=== PATIENT | female | born 1940 | race Caucasian/White ===

== ENCOUNTER → 2016-08-15 | Outpatient (CLI) | payer BC, OTHER ==
[~2016-08-15] MED LIST: ASCA500 PO; CALCTAB5 PO; DICL1GEL28 TOP; DOCU-94 PO; HYDUNK; IBUP-1428 PO; MECL1TAB40 PO; METO25TA56 PO; MULT-506 PO; OMEG10007 PO; PRLSR20 PO; RED1CAP5 PO; TRIA37.5 PO; ULT50X PO; compound cream TOP
== END | disposition home or self-care (01) ==
LOC: C.CTS 10:23
PROVIDERS: ATTEND Orthopaedic Surgery
DX: Z01.818 Encounter for other preprocedural examination (principal); M19.011 Primary osteoarthritis, right shoulder

== ENCOUNTER → 2016-08-19 | Outpatient (CLI) | payer BC ==
[~2016-08-19] MED LIST changes: -DICL1GEL28 TOP; -HYDUNK; -compound cream TOP
--- NOTE | 2016-08-19 15:37 | MAMMOGRAPHY REPORT ---
BILATERAL DIGITAL SCREENING MAMMOGRAM WITH CAD: 08/19/2016 CLINICAL HISTORY: Routine screening. Patient has no complaints. TECHNIQUE: Bilateral CC and MLO views were obtained. Current study was also evaluated with a Comput er Aided Detection (CAD) system. COMPARISON: Comparison is made to exams dated: 08/17/2015 mammogram, 03/30/2013 mammogram, 07/05/2014 mammogram, 02/07/2012 mammogram, 01/31/2011 mammogram, and 01/30/2010 mammogram - [facility]. BREAST COMPOSITION: There are scattered areas of fibroglandular density in both breasts. FINDINGS: There is a stable loose grouping of round and punctate microcalcifications in the lower in ner middle one third of the left breast, that appears similar on all available prior mammograms dati ng back to at least , therefore likely benign. There are mild vascular calcifications in the breasts. No new suspicious mass, architectural distortion or cluster of microcalcifications is seen . IMPRESSION: ACR BI-RADS CATEGORY 1: NEGATIVE There is no mammographic evidence of malignancy. A 1 year screening mammogram is recommended. The p atient will receive written notification of the results. Approximately 10% of breast cancers are not detected with mammography. A negative mammographic repor t should not delay biopsy if a clinically suggestive mass is present. Tavia Iverson M.D. ay/:08/19/2016 14:21:37 Dry Cleaning Counter Clerk: Shayy RENNER)(M), [facility] letter sent: Normal 1/2 BI-RADS Code: ACR BI-RADS Category 1: Negative
== END | disposition home or self-care (01) ==
LOC: C.MAMM 11:05
PROVIDERS: ATTEND Family Medicine
DX: Z12.31 Encounter for screening mammogram for malignant neoplasm of breast (principal)

== ENCOUNTER → 2016-09-19 | Outpatient (CLI) | payer BC ==
--- NOTE | 2016-09-19 14:49 | DIAGNOSTIC IMAGING REPORT ---
RIGHT ANKLE MIN 3 VIEWS ROUTINE CLINICAL HISTORY: M25.571 Right pain COMPARISON: None. DISCUSSION: Findings suggesting old fixation of the base of the first met tarsal. Probable osteochondral defect medial talar dome. Soft tissue swelling over the lateral malleolus. Mild to moderate generalized degenerative changes throughout. Mild pars planus deformity of the calcaneus. Small heel spur. IMPRESSION: Moderate to rather significant degenerative as well as postoperative change. Probable osteochondral defect medial talar dome. Small heel spur. Electronically signed by: Talib Jc M.D. 09/19/2016 2:48 PM Dictated Date/Time: 09/19/2016 2:46 PM
== END | disposition home or self-care (01) ==
LOC: C.RAD 14:28
PROVIDERS: ATTEND Family Medicine
DX: M25.571 Pain in right ankle and joints of right foot (principal); R93.7 Abnormal findings on diagnostic imaging of other parts of musculoskeletal system

== ENCOUNTER 2016-09-20 10:16 | Inpatient (IN) | payer BC, OTHER ==
[2016-08-15 10:43] VITALS: BMI 29.0
--- NOTE | 2016-08-15 11:24 | PAT Medication Instructions ---
Service Date Aug 15, 2016. Current Home Medication List Ascorbic Acid (Vitamin C *), 500 MG PO BID Calcium (Caltrate), 600 MG PO BID Docusate Sodium (Colace), 1 CAP PO HS Fish Oil ([place]-3), 1 CAP PO BID Ibuprofen (Motrin), 800 MG PO BID PRN for Pain Meclizine HCl (Meclizine HCl), 2 TAB PO TID PRN for VERTIGO Metoprolol Tartrate (Lopressor) (Lopressor), 1 TAB PO QAM Multivitamin (Multivitamin), 1 TAB PO BID Omeprazole (Prilosec), 20 MG PO QAM Red Yeast Rice Extract (Red Yeast Rice), 1 CAP PO BID Triamterene/Hctz (Dyazide 37.5MG/25MG), 1 TAB PO QAM Medication Instructions For Your Scheduled Surgery - Hold the following medications 2 weeks prior to surgery: Fish Oil ([place]-3), 1 CAP PO BID Red Yeast Rice Extract (Red Yeast Rice), 1 CAP PO BID - Hold the following medications 7DAYS prior to surgery per surgeon's instructions: Ibuprofen (Motrin), 800 MG PO BID PRN for Pain - Hold the following medications the morning of surgery: Ascorbic Acid (Vitamin C *), 500 MG PO BID Multivitamin (Multivitamin), 1 TAB PO BID Triamterene/Hctz (Dyazide 37.5MG/25MG), 1 TAB PO QAM Calcium (Caltrate), 600 MG PO BID Meclizine HCl (Meclizine HCl), 2 TAB PO TID PRN for VERTIGO - Take the following medications the morning of surgery with a sip of water OTHERWISE NOTHING TO EAT OR DRINK AFTER MIDNIGHT: Metoprolol Tartrate (Lopressor) (Lopressor), 1 TAB PO QAM Omeprazole (Prilosec), 20 MG PO QAM - Take the following medications as scheduled the night before surgery: Ascorbic Acid (Vitamin C *), 500 MG PO BID Multivitamin (Multivitamin), 1 TAB PO BID Calcium (Caltrate), 600 MG PO BID Docusate Sodium (Colace), 1 CAP PO HS Meclizine HCl (Meclizine HCl), 2 TAB PO TID PRN for VERTIGO If you have any questions please call us at [phone] or [phone] or [phone]
[2016-08-15 11:59] LABS: BASO % 0.5 %; BASO ABS # 0.03 K/uL (0-0.2); COMPLETE YES; EOS % 2.3 %; HEMATOCRIT 37.2 % (37-47); IG% 0.2 %; LYMPH % 27.8 %; LYMPH ABS # 1.71 K/uL (1.2-3.4); MEAN CELL VOLUME 91.6 fL (80-100); MEAN CORPUSCULAR HEMOGLOBIN 30.8 pg (25-34); MEAN CORPUSCULAR HGB CONC 33.6 g/dl (32-36); MEAN PLATELET VOLUME 10.2 fL (7.4-10.4); NEUT % 63.2 %; PLATELET COUNT 206 K/uL (130-400); RED BLOOD COUNT 4.06 M/uL (4.2-5.4); WHITE BLOOD COUNT 6.15 K/uL (4.8-10.8)
[2016-08-15 12:10] LABS: URINE APPEARANCE CLEAR (CLEAR); URINE BILIRUBIN NEG (NEG); URINE COLOR YELLOW; URINE NITRITE NEG (NEG); URINE PH 8.5 (4.5-7.5); URINE SPECIFIC GRAVITY 1.005 (1.000-1.030); UROBILINOGEN NEG (NEG)
[2016-08-15 12:13] LABS: PROTHROMBIN TIME (PATIENT) 10.6 SECONDS (9.0-12.0)
[2016-08-15 12:13] LABS: MANUAL MICROSCOPIC REQUIRED? NO; REVIEW REQ? NO
--- NOTE | 2016-08-15 12:32 | DIAGNOSTIC IMAGING REPORT ---
CHEST PREADMISSION(PA/LAT) CLINICAL HISTORY: PAT preoperative evaluation COMPARISON STUDY: No previous studies for comparison. FINDINGS: The bones soft tissues and hemidiaphragms are normal. The cardiomediastinal silhouette is normal. The lungs are clear. The pulmonary vasculature is normal. IMPRESSION: Negative chest. Electronically signed by: Talib Jc M.D. 08/15/2016 12:31 PM Dictated Date/Time: 08/15/2016 12:30 PM
--- NOTE | 2016-09-18 17:17 | HISTORY & PHYSICAL EXAMINATION ---
DATE OF ADMISSION: 09/20/2016 HISTORY AND PHYSICAL ADMISSION NOTE CHIEF COMPLAINT: Chronic right shoulder pain. HISTORY OF PRESENT ILLNESS: Aria is a very pleasant 76-year-old female who has been dealing with chronic right shoulder pain. MRI from 3 years ago showed a very large rotator cuff tear. At that time, she was taking care of her son who was unable to have any surgeries. I have been given her injections over the past 3 years. Unfortunately, she had another fall and has had further weakness and pain in the shoulder. We talked about treatment options. She wanted the option that we give her the quickest and most predictable recovery. I felt it was reverse shoulder arthroplasty and she would like to proceed. She understands the risks, benefits, alternatives to the procedure. PAST MEDICAL HISTORY: Significant for mitral valve prolapse, hyperlipidemia and hypertension. MEDICATIONS: Include metoprolol and Dyazide. PAST SURGICAL HISTORY: Significant for ORIF of her arm, hysterectomy and a cholecystectomy. ALLERGIES: MORPHINE. FAMILY HISTORY: Noncontributory. SOCIAL HISTORY: The patient is , has 5 children and is moderately active. REVIEW OF SYSTEMS: The patient complains of right shoulder pain. All other pertinent review of systems is negative. PHYSICAL EXAMINATION: GENERAL: She is awake, alert and oriented x3. She is in no apparent distress. She is very pleasant. HEENT: Pupils are equal, round and reactive to light. Extraocular motion is intact. Oral mucosa is pink and moist. HEART: Regular rate per radial pulse. LUNGS: Raine symmetrically bilaterally with no audible breath sounds. ABDOMEN: Soft, nontender, nondistended. MUSCULOSKELETAL: On physical examination of the shoulder, actively she has about 140 degrees of forward flexion and 40 degrees of abduction. She has 3/5 muscle strength to full can testing and 3/5 muscle strength with external rotation. Negative horn blower sign and negative lag sign and negative belly press test. IMAGING DATA: X-rays of the shoulder show the humeral head slightly elevated within the glenoid, there is not much arthritis. MRI from 2013 does show a large retracted rotator cuff tear with moderate atrophy. IMPRESSION: Cuff arthropathy of the right shoulder. PLAN: Will proceed with a Biomet comprehensive reverse right shoulder arthroplasty. Postoperatively, she will be admitted overnight for postoperative medical management.
[2016-09-20] VITALS (9 sets, daily range): BP systolic 99–150; BP diastolic 65–80; PULSE 73–90; TEMP 36.4–36.5; O2SAT 90–97; Ht 154.9 cm; Wt 69.9 kg
[~2016-09-20] VITALS: Ht 154.9 cm; Wt 69.9 kg
[2016-09-20] MEDS: TRANEXAMIC ACID INJ 1,000 MG in SODIUM CHLORIDE 0.9% 100ML 100 ML IV SCH ×2 (06:30→12:49)
[~2016-09-20 10:16] MED LIST changes: +ACETAMINOPHEN 500 MG TAB PO SCH; +BUPIVACAINE/EPINEPHRINE 0.25% 1:200,000 30 ML VIAL ONE; +CEFAZOLIN 2000 MG/60 ML D5W 60 ML IV SCH; +FAMOTIDINE 20 MG TAB PO SCH; +FENTANYL CITRATE INJ 50 MCG/1 ML 2 ML VIAL ONE; +GABAPENTIN 300 MG CAP PO SCH; +LACTATED RINGER'S 1000ML 1,000 ML IV SCH; +LACTATED RINGER'S 1000ML IV SCH; +MIDAZOLAM HCL 1 MG/ML 2ML VIAL ONE; +ROPIVACAINE 0.5% 5 MG/ML 30 ML VIAL ONE; +ROPIVACAINE 5MG/ML 30 ML 150 MG, BUPIVACAINE/EPINEPHR 0.5% MPF 30 ML, KETOROLAC TROMETH... INFIL SCH; -ULT50X PO
--- NOTE | 2016-09-20 11:37 | History & Physical Bridge Note ---
H&P Re-Evaluation Bridge Note: I have examined the patient, reviewed the History & Physical and in the interval since the performance of the History & Physical I have noted the following changes of clinical significance: No changes noted
[2016-09-20] MEDS ORDERED: SCOPOLAMINE 1.5 MG TDSY TD ONE (12:09)
[2016-09-20] MEDS ORDERED: BUPIVACAINE/EPINEPHRINE 0.5% MPF 1:200,000 30 ML VIAL ONE (12:34)
[2016-09-20] MEDS ORDERED: BACITRACIN 50000 UNIT VIAL ONE (12:34)
[2016-09-20] MEDS ORDERED: ORTHO JOINT ANESTHETIC ONE (12:53)
[2016-09-20] MEDS ORDERED: ONDANSETRON INJ 2 MG/ML 2 ML VIAL ONE ×2 (12:58→13:30)
[2016-09-20] MEDS ORDERED: LABETALOL HCL IV 5 MG/ML 20ML IV PRN (13:00)
[2016-09-20] MEDS ORDERED: ONDANSETRON INJ 2 MG/ML 2 ML VIAL IV PRN ×2 (13:00→14:45)
[2016-09-20] MEDS ORDERED: MEPERIDINE HCL 25 MG/ML CARP IV PRN (13:00)
[2016-09-20] MEDS ORDERED: NALOXONE HCL 0.4 MG/1 ML VIAL/CARP IV PRN ×2 (13:00→14:45)
[2016-09-20] MEDS ORDERED: ATROPINE SULFATE 0.1 MG/ML 5ML SYR IV PRN (13:00)
[2016-09-20] MEDS ORDERED: EpHEDrine SULFATE INJ 50 MG/ML AMP IV PRN (13:00)
[2016-09-20] MEDS ORDERED: FLUMAZENIL 0.1 MG/1 ML 10 ML VIAL IV PRN (13:00)
[2016-09-20] MEDS ORDERED: FENTANYL CITRATE INJ 50 MCG/1 ML 2 ML VIAL IV PRN (13:00)
[2016-09-20] MEDS ORDERED: HYDROmorphone INJ 2 MG/ML SYR/VIAL IV PRN (13:00)
[2016-09-20] MEDS ORDERED: PHENYLEPHRINE 100MCG/ML 5ML SYR IV PRN (13:00)
[2016-09-20] MEDS ORDERED: DEXAMETHASONE SOD INJ 4 MG/ML VIAL ONE (13:30)
[2016-09-20] MEDS ORDERED: PROPOFOL IV EMULSION 10 MG/ML 20 ML VIAL IV ONE (13:30)
[2016-09-20] MEDS ORDERED: LIDOCAINE HCL 2% 2 ML VIAL (20MG/ML) ONE (13:30)
[2016-09-20] MEDS ORDERED: NEOSTIGMINE METHYLSULFATE 5 MG/5 ML SYR ONE (13:30)
[2016-09-20] MEDS ORDERED: GLYCOPYRROLATE INJ 0.2 MG/ML VIAL ONE (13:30)
[2016-09-20] MEDS ORDERED: ROCURONIUM BROMIDE 10 MG/ML 5 ML VIAL ONE (13:30)
[2016-09-20] MEDS ORDERED: EpHEDrine SULFATE 50MG/5ML SYR ONE (14:30)
[2016-09-20] MEDS ORDERED: PHENYLEPHRINE HCL INJ 10 MG/ML VIAL ONE (14:30)
--- NOTE | 2016-09-20 14:38 | [facility] Post Operative Brief Note ---
Immediate Operative Summary Operative Date Sep 20, 2016. Pre-Operative Diagnosis Cuff arthropathy of the right shoulder Post-Operative Diagnosis Same Procedure(s) Performed Right Reverse Total Shoulder Arthroplasty Surgeon Dr Benjamin Receiving Manager Surgeon(s) Rogelio Monae PA-C Findings as above Specimens A. Right humeral head Complication(s) None Disposition Recovery Room / PACU
[2016-09-20] MEDS ORDERED: MAGNESIUM HYDROXIDE SUSP 30 ML UDC PO PRN (14:45)
[2016-09-20] MEDS ORDERED: HYDROmorphone INJ 1 MG/ML SYR IV PRN (14:45)
[2016-09-20] MEDS ORDERED: BISACODYL 10 MG SUPP PR PRN (14:45)
[2016-09-20] MEDS ORDERED: SOD PHOSPHATE/SOD BIPHOSPHATE ENEMA 132 ML BTL PR PRN (14:45)
[2016-09-20] MEDS ORDERED: METOCLOPRAMIDE HCL INJ 5 MG/ML 2 ML VIAL IV PRN (14:45)
[2016-09-20] MEDS ORDERED: OXYCODONE HCL IR 5 MG TAB (IMMEDIATE RELEASE) PO PRN (14:45)
--- NOTE | 2016-09-20 15:21 | DIAGNOSTIC IMAGING REPORT ---
RIGHT SHOULDER 2 VIEWS CLINICAL HISTORY: Postoperative examination. FINDINGS: 2 portable views of the right shoulder are obtained. The skeletal structures are osteopenic. A right shoulder arthroplasty is in near anatomic alignment. No acute fracture is seen. There are expected postoperative changes overlying the right shoulder including a surgical drain, subcutaneous gas, and soft tissue swelling. There is right basilar atelectasis. Imaged right lung parenchyma is otherwise grossly clear. Mild pulmonary vascular congestion is suggested. IMPRESSION: 1. Expected postoperative findings status post right shoulder arthroplasty. No acute fracture is seen. 2. Question mild pulmonary vessel congestion. Clinical correlation will be required. Electronically signed by: Farhat Green M.D. 09/20/2016 3:19 PM Dictated Date/Time: 09/20/2016 3:18 PM
[2016-09-20] MEDS ORDERED: PROMETHAZINE HCL INJ 12.5 MG in SODIUM CHLORIDE 0.9% 50ML 50 ML IV ONE (15:45)
[2016-09-20] MEDS ORDERED: NURSING VERBAL MED ORDER ONE ×2 (16:00)
--- NOTE | 2016-09-20 16:02 | OPERATIVE REPORT ---
DATE OF OPERATION: 09/20/2016 PREOPERATIVE DIAGNOSIS: Cuff arthropathy of the right shoulder. POSTOPERATIVE DIAGNOSIS: Same. PROCEDURE: Reverse right total shoulder arthroplasty. SURGEON: Dr. Mike Benjamin. ELDER ASSISTANT: Rogelio Monae PA-C, whose assistance was necessary for positioning the arm and helping with instrumentation. ANESTHESIA: General with a right interscalene nerve block. COMPLICATIONS: None. CONDITION: Stable to PACU. IMPLANTS USED: I used a Biomet comprehensive reverse right shoulder arthroplasty with a 25-mm mini baseplate, a 30-mm central compression screw, 2 peripheral locking screws, a 36-mm eccentric standard glenosphere, a size 14 press-fit mini humeral stem, a standard humeral tray and a standard humeral bearing. No cement was used during the case. INDICATIONS: Aria is a pleasant 76-year-old female who initially presented to my office about 3 years ago with shoulder pain. MRI at that time showed an irreparable rotator cuff tear. I was able to treat her conservatively. Unfortunately, she failed and had increased pain and weakness and loss of function of that arm. After failing further conservative treatment, she elected to undergo a reverse shoulder arthroplasty. DESCRIPTION OF PROCEDURE: On 09/20/2016, she arrived at the [facility] for the above procedure. She was seen in the preoperative holding area and the operative extremity was identified and signed. She was given a preoperative antibiotic, taken back to the operating room, laid on the table in supine position, given a right interscalene nerve block and put in the beachchair position and put under general anesthesia. The right shoulder was prepped and draped in sterile fashion. Time-out was done and the patient and operative extremity was properly identified. A deltopectoral approach was used. Dissection was taken down through the fascia and the anterior shoulder was exposed. The long head of biceps tendon was tenodesed to the upper border of the pectoralis major and the subscapularis was tenotomized off the lesser tuberosity with a centimeter of cuff tissue remaining. The proximal humerus was then exposed. Sequential reaming of the canal to a size 14 reamer was done. Off the final reamer, a proximal humeral resection guide was placed and the proximal humerus was resected at 135 degrees of inclination and 20 degrees of retroversion. The guide was then removed and the glenoid was exposed. Time was spent doing a complete circumferential capsular and labral release. The long head of the triceps was also released as it was close to the rim of the glenoid. The Bi[employer]SongTo[employer] signature guide was then snapped on to the anterior glenoid and a guidepin was placed in reverse shoulder arthroplasty hole. A 25-mm mini baseplate was then reamed and placed. A single 30-mm central screw was placed and I was able to get an excellent bite. Superior and inferior locking screws were then placed. A 36-mm eccentric glenosphere was then impacted into place. The proximal humerus was once again exposed. Sequential broaching up to a size 14 broach was done. Off that broach, a standard humeral tray was used. The shoulder was reduced, brought through a full range of motion and felt to be stable. The broach handle was then removed and the final 14-mm mini humeral stem was impacted into place. The standard humeral bearing was snapped on the standard humeral tray and the ring lock mechanism was engaged. A humeral tray was then impacted onto the humeral stem. The shoulder was then reduced, brought through a full range of motion and felt to be stable. The subscapularis was then tenodesed back to the lesser tuberosity with transosseous FiberWire sutures and [id number] sutures. The entire shoulder was irrigated with 3 liters of normal saline solution with bacitracin. Surrounding soft tissues were all injected with 100 mL an orthopedic pain control cocktail. A drain was placed. The skin was then closed with 2-0 Vicryl, 3-0 V-Loc suture and a Prineo dressing. She was then placed in a soft dressing and a right arm sling. She was then extubated, transferred to a [facility] and taken to the postanesthesia care unit in stable condition. She tolerated the procedure well. I attest to the content of the Intraoperative Record and any orders documented therein. Any exceptio ns are noted below.
[2016-09-20] MEDS ORDERED: METOCLOPRAMIDE HCL INJ 5 MG/ML 2 ML VIAL IV STA (16:06)
[2016-09-20] MEDS ORDERED: LACTATED RINGER'S 1000ML 500 ML IV ONE (16:15)
--- NOTE | 2016-09-20 16:15 | Anesthesiology Progress Note ---
Anesthesia Post Op Note Date & Time Sep 20, 2016 at 16:13 Vital Signs Pain Intensity: 0 Vital Signs Past 12 Hours Date Time Temp Pulse Resp B/P Pulse Ox O2 Delivery O2 Flow Rate FiO2 09/20/16 15:59 71 16 09/20/16 15:59 76 16 96 09/20/16 15:55 111/59 09/20/16 15:54 77 16 96 09/20/16 15:54 76 16 09/20/16 15:50 119/58 09/20/16 15:49 87 14 09/20/16 15:49 86 14 96 09/20/16 15:46 116/67 09/20/16 15:44 83 13 95 09/20/16 15:44 83 13 09/20/16 15:40 124/57 09/20/16 15:39 74 15 95 09/20/16 15:39 75 15 09/20/16 15:36 131/65 09/20/16 15:34 65 12 96 09/20/16 15:34 70 12 09/20/16 15:30 129/68 09/20/16 15:29 81 13 09/20/16 15:29 82 13 95 09/20/16 15:26 138/74 09/20/16 15:24 67 13 96 09/20/16 15:24 66 13 09/20/16 15:20 127/73 09/20/16 15:19 81 13 09/20/16 15:19 82 13 98 09/20/16 15:16 134/77 09/20/16 15:14 66 14 99 09/20/16 15:14 67 14 09/20/16 15:10 134/75 09/20/16 15:09 79 14 09/20/16 15:09 77 14 99 09/20/16 15:05 129/63 09/20/16 15:04 82 13 99 09/20/16 15:04 81 13 09/20/16 15:00 132/64 09/20/16 14:59 36.0 85 16 132/64 96 Mask 10 09/20/16 14:59 76 13 09/20/16 14:59 86 13 140/71 96 09/20/16 10:39 36.5 86 18 150/80 Room Air Notes Mental Status: alert / awake / arousable, participated in evaluation Pt Amnestic to Procedure: Yes Nausea / Vomiting: adequately controlled Pain: adequately controlled Airway Patency, RR, SpO2: stable & adequate BP & HR: stable & adequate Hydration State: stable & adequate Anesthetic Complications: no major complications apparent Block working well in pacu. Nausea improved with treatment with Zofran, then Phenergan, then Reglan, along with a bolus of crystalloid. She was baseline nauseated before entering the operating room and her nausea has approached preoperative levels. She is not vomiting, and so this can be adequately further managed on the floor.
[2016-09-20] MEDS: D5W AND 1/2NSS + 20MEQ KCL 1,000 ML IV SCH (17:26)
[2016-09-20] MEDS: CEFAZOLIN IV 1,000 MG in DEXTROSE 5% 50ML 50 ML IV SCH (19:54)
[2016-09-20] MEDS: KETOROLAC TROMETHAMINE 15 MG/ML VIAL IV. SCH (19:54)
[2016-09-20] MEDS ORDERED: KETOROLAC TROMETHAMINE 15 MG/ML VIAL IV. SCH (20:00)
[2016-09-20] MEDS: ASCORBIC ACID 500 MG TAB PO SCH (21:00)
[2016-09-20] MEDS: DOCUSATE SODIUM 100 MG CAP PO SCH (21:00)
[2016-09-20] MEDS ORDERED: SENNA 8.6 MG TAB PO SCH (21:00)
[2016-09-20] MEDS: CALCIUM CARBONATE 1250MG TAB PO SCH (21:00)
[2016-09-20] MEDS: ACETAMINOPHEN IV 1,000 MG in EMPTY BAG 0 ML IV SCH (21:56)
[2016-09-21 00:50] VITALS: O2SAT 89
[2016-09-21 00:51] VITALS: O2SAT 93
[2016-09-21] MEDS: KETOROLAC TROMETHAMINE 15 MG/ML VIAL IV. SCH ×2 (01:51→08:15)
[2016-09-21 03:32] VITALS: BP 93/60; PULSE 73; TEMP 36.4; O2SAT 96
[2016-09-21] MEDS: CEFAZOLIN IV 1,000 MG in DEXTROSE 5% 50ML 50 ML IV SCH (03:55)
[2016-09-21] MEDS: D5W AND 1/2NSS + 20MEQ KCL 1,000 ML IV SCH (03:55)
[2016-09-21 05:31] LABS: HEMATOCRIT 30.8 % (37-47); MEAN CELL VOLUME 91.4 fL (80-100); MEAN CORPUSCULAR HEMOGLOBIN 30.3 pg (25-34); MEAN CORPUSCULAR HGB CONC 33.1 g/dl (32-36); MEAN PLATELET VOLUME 10.1 fL (7.4-10.4); PLATELET COUNT 191 K/uL (130-400); RED BLOOD COUNT 3.37 M/uL (4.2-5.4); WHITE BLOOD COUNT 11.01 K/uL (4.8-10.8)
[2016-09-21 05:56] LABS: BUN/CREATININE RATIO 18.4 (10-20); CALCIUM 8.8 mg/dl (8.5-10.1); CREATININE 0.89 mg/dl (0.60-1.20); POTASSIUM 4.8 mmol/L (3.5-5.1)
[2016-09-21] MEDS: ACETAMINOPHEN IV 1,000 MG in EMPTY BAG 0 ML IV SCH (06:10)
[2016-09-21 08:02] VITALS: BP 101/60; PULSE 66; PULSE 71; TEMP 36.5; O2SAT 92; O2SAT 95
[2016-09-21] MEDS ORDERED: ULT50X PO (08:34)
--- NOTE | 2016-09-21 08:36 | Discharge Instructions ---
Discharge Instructions Date of Service Sep 21, 2016. Admission Reason for Admission: Right Shoulder Full Thickness Rtc Tear, Pain Discharge Discharge Diagnosis / Problem: Right Reverse Total Shoulder Discharge Goals Goal(s): Decrease discomfort, Improve function Activity Recommendations Activity Limitations: as noted below Shower/Bathe: may shower/bathe in 3 days sling for 3 weeks . Instructions / Follow-Up Instructions / Follow-Up may shower on Friday, leave glue dressing in place until 2 week follow-up Current Hospital Diet Patient's current hospital diet: Regular Diet Discharge Diet Recommended Diet: Regular Diet Procedures Procedures Performed: Right Reverse Total Shoulder Arthroplasty Pending Studies Studies pending at discharge: no Medical Emergencies . Who to Call and When: Medical Emergencies: If at any time you feel your situation is an emergency, please call 911 immediately. . Non-Emergent Contact Non-Emergency issues call your: Surgeon Call Non-Emergent contact if: wound has increased drainage, wound has increased redness . "Provider Documentation" section prepared by Mike Benjamin. VTE Core Measure Inpt VTE Proph given/why not?: Treatment not indicated
[2016-09-21] MEDS ORDERED: PANTOprazole SOD 40 MG TAB PO SCH (09:00)
[2016-09-21] MEDS ORDERED: METOPROLOL TARTRATE 25 MG TAB PO SCH (09:00)
[2016-09-21] MEDS ORDERED: TRIAMTERENE/HCTZ 37.5/25MG CAP PO SCH (09:00)
[2016-09-21] MEDS ORDERED: MULTIVITAMIN TAB PO SCH (09:00)
[2016-09-21] MEDS: ASCORBIC ACID 500 MG TAB PO SCH (09:02)
[2016-09-21] MEDS: DOCUSATE SODIUM 100 MG CAP PO SCH (09:02)
[2016-09-21] MEDS: CALCIUM CARBONATE 1250MG TAB PO SCH (09:02)
--- NOTE | 2016-09-21 09:07 | PROGRESS NOTE ---
DATE: 09/21/2016 DATE: 09/21/2016. CHIEF COMPLAINT: Status post right reverse shoulder arthroplasty postop day #1. PROGRESS: Aria was seen and examined at bedside today. Overall, she is doing very well. She said she really has no pain in her shoulder. She was able to get some sleep last night and has no complaints. PHYSICAL EXAMINATION: RIGHT SHOULDER: The dressing is clean and dry and the drain is to suction. Her radial, median and ulnar nerves were checked and intact at her wrist. Her axillary nerve was not checked yet. She is wearing her sling as instructed. LABORATORY DATA: She has an H\T\H today of 10.2 and 30.8. Her glucose is 139. Her vital signs are all stable on room air. She is voiding on her own. X-rays postoperatively of the right shoulder show the prosthesis to be in near anatomic alignment without any evidence of fracture, dislocation or loosening. IMPRESSION: Status post reverse right shoulder arthroplasty postop day #1. PLAN: At this point, she is doing very well. She is happy with her progress. She has very little pain. The nursing staff can change the dressing, pull the drain and will discharge her to home later this morning.
[2016-09-21 09:27] VITALS: BP 101/60; PULSE 66; TEMP 36.5; O2SAT 92
--- NOTE | 2016-09-21 09:59 | DISCHARGE SUMMARY ---
DATE OF DISCHARGE: 09/21/2016. DISCHARGE DIAGNOSIS: Cuff arthropathy of the right shoulder. PROCEDURE: Reverse right shoulder arthroplasty on 09/20/[address] Mike Benjamin. DISCHARGE INSTRUCTIONS: 1. Tramadol 50 mg every 6 hours as needed for pain. 2. Vitamin C 500 mg twice a day. 3. Calcium 600 mg twice a day. 4. Colace 100 mg at night. 5. Fish oil daily. 6. Motrin 800 mg twice a day as needed. 7. Meclizine 12.5 mg 3 times a day as needed. 8. Lopressor 25 mg daily. 9. Prilosec 20 mg daily. 10. Dyazide 37.5/25 mg daily. 11. Right arm sling for 3 weeks. 12. Follow up with Dr. Benjamin in 2 weeks. 13. Call the office of Dr. Benjamin with any questions or concerns. HOSPITAL COURSE: Aria is a pleasant 76-year-old female who was having a several year history of right shoulder pain. MRI and clinical examination were diagnostic for cuff arthropathy of the right shoulder. After failing conservative treatment, she elected to undergo a reverse right shoulder arthroplasty. On 09/20/2016 she arrived at [facility] and underwent a reverse right shoulder arthroplasty without complications. She had a general anesthetic and a right interscalene nerve block. Postoperatively, she was placed in an arm sling and discharged to general orthopedic floor. Her hospital course was relatively uneventful. On postop day #1, she was having very little pain. Her H\T\H was stable at 10.2 and 30.8. She was able to participate well with physical therapy. She was subsequently discharged to home with the above instructions.
[2016-09-21 10:15] VITALS: O2SAT 92
== END 2016-09-21 11:13 | disposition home or self-care (01) | DRG 483 ==
LOC: ENRESERVTM → ENRESERVDT → C.ACU 10:16 → C.3E 14:42
PROVIDERS: ADMIT Orthopaedic Surgery; ATTEND Orthopaedic Surgery
PROC: 0RRJ0J6 Replacement of Right Shoulder Joint with Synthetic Substitute, Humeral Surface, Open Approach (ICD-10-PCS; principal; 2016-09-20 12:45)
DX: M19.011 Primary osteoarthritis, right shoulder (principal); I10 Essential (primary) hypertension; E78.5 Hyperlipidemia, unspecified; I34.1 Nonrheumatic mitral (valve) prolapse; Z90.49 Acquired absence of other specified parts of digestive tract; Z90.710 Acquired absence of both cervix and uterus; M25.571 Pain in right ankle and joints of right foot; R93.7 Abnormal findings on diagnostic imaging of other parts of musculoskeletal system; Z79.899 Other long term (current) drug therapy

== ENCOUNTER → 2017-03-07 | Outpatient (CLI) | payer BC ==
[~2017-03-07] MED LIST changes: -ACETAMINOPHEN 500 MG TAB PO SCH; -BUPIVACAINE/EPINEPHRINE 0.25% 1:200,000 30 ML VIAL ONE; -CEFAZOLIN 2000 MG/60 ML D5W 60 ML IV SCH; -FAMOTIDINE 20 MG TAB PO SCH; -FENTANYL CITRATE INJ 50 MCG/1 ML 2 ML VIAL ONE; -GABAPENTIN 300 MG CAP PO SCH; -LACTATED RINGER'S 1000ML 1,000 ML IV SCH; -LACTATED RINGER'S 1000ML IV SCH; -MIDAZOLAM HCL 1 MG/ML 2ML VIAL ONE; -ROPIVACAINE 0.5% 5 MG/ML 30 ML VIAL ONE; -ROPIVACAINE 5MG/ML 30 ML 150 MG, BUPIVACAINE/EPINEPHR 0.5% MPF 30 ML, KETOROLAC TROMETH... INFIL SCH
--- NOTE | 2017-03-07 11:38 | DIAGNOSTIC IMAGING REPORT ---
RENAL ULTRASOUND CLINICAL HISTORY: CHRONIC KIDNEY DISEASE STAGE 3 COMPARISON STUDY: None. FINDINGS: The right kidney measures 8.4 cm and the left kidney measures 9.0 cm. Normal corticomedullary differentiation and cortical thickness for age. No hydronephrosis. No renal stones. The left kidney is partially obscured by overlying bowel gas. Bladder is not well-distended but appears within normal limits. IMPRESSION: Normal renal ultrasound. Electronically signed by: Luis Fernando Stephenson M.D. 03/07/2017 11:36 AM Dictated Date/Time: 03/07/2017 11:35 AM
== END | disposition home or self-care (01) ==
LOC: C.ULTR 10:44
PROVIDERS: ATTEND Physician Assistant
DX: N18.3 Chronic kidney disease, stage 3 (moderate) (principal)

== ENCOUNTER → 2017-08-21 | Outpatient (CLI) | payer BC ==
--- NOTE | 2017-08-21 14:30 | MAMMOGRAPHY REPORT ---
BILATERAL DIGITAL SCREENING MAMMOGRAM TOMOSYNTHESIS WITH CAD: 08/21/2017 CLINICAL HISTORY: Routine screening. TECHNIQUE: Breast tomosynthesis in addition to standard 2D mammography was performed. Current study was also evaluated with a Computer Aided Detection (CAD) system. COMPARISON: Comparison is made to exams dated: 08/19/2016 mammogram, 08/17/2015 mammogram, 07/05/2014 ma mmogram, 03/30/2013 mammogram, 02/07/2012 mammogram, and 01/31/2011 mammogram - [facility]. BREAST COMPOSITION: There are scattered areas of fibroglandular density in both breasts. FINDINGS: No suspicious masses, calcifications, or areas of architectural distortion are noted in ei ther breast. There has been no significant interval change compared to prior exams. IMPRESSION: ACR BI-RADS CATEGORY 1: NEGATIVE There is no mammographic evidence of malignancy. A 1 year screening mammogram is recommended. The pa tient will receive written notification of the results. Approximately 10% of breast cancers are not detected with mammography. A negative mammographic report should not delay biopsy if a clinically suggestive mass is present. Clare Ferrari M.D. ah/:08/21/2017 13:55:50 Rheumatology Nurse: Yocasta KUHN(Curtis)(M), [facility] letter sent: Normal 1/2 BI-RADS Code: ACR BI-RADS Category 1: Negative
== END | disposition home or self-care (01) ==
LOC: C.MAMM 10:09
PROVIDERS: ATTEND Physician Assistant
DX: Z12.31 Encounter for screening mammogram for malignant neoplasm of breast (principal)